=== PATIENT | female | born 1965 | race African-American/Black ===

== ENCOUNTER 2017-08-14 23:01 | Inpatient (IN) | payer OTHER ==
[~2017-08-14] VITALS: Ht 172.7 cm; Wt 138.3 kg
[~2017-08-14 23:01] MED LIST: ASPI-612 PO; AZIT250T6 PO; BISA10SU15 RC; CETI10TA22 PO; CIPR500T94 PO; CRAN475C2 PO; FLUT16SP2 NS; GARL1TAB2 PO; GUAI600T47 PO; HYDR12.53 PO; HYDR12.58 PO; IBUP800T19 PO; LOSA25TA4 PO; LUTE10TA2 PO; METO25TA4 PO; MONT10TA9 PO; MULT-658 PO; [UNRECOGNIZED DRUG - OTHER]; [UNRECOGNIZED DRUG - OTHER] PO
--- NOTE | 2017-08-14 23:06 | ED.ADGEN ---
Past History Past Medical History: CAD, Diabetes, Seizure Past Surgical History: No Surgical History Alcohol Use: None Drug Use: None Adult General Chief Complaint Chief Complaint " She had a seizure this morning .. about 800 am.. but she never came around.. but that is not unusual for her...".. " When she has a seizure... the fei lays around all day..." . HPI HPI Patient is a 51 year old female who presents with above hx and complaints. of tonic clonic seizure at approx. 0800 hrs. Pt. has hx of known seizure disorder, HTN, CADz, and diabetes. Pt. reportedly has not been compliant with meds. Pt. refuses to come to the ED when she has a seizure per family and . Pt. had no seizure meds in her purse- this is location pt keeps her meds. Pt. reportedly had no trauma, fevers, illicit drug use. Pt. on arrival open eyes to voice and follow instruction. Pt. GSC-14. Review of Systems Review of Systems Constitutional: Denies fever or chills [] Eyes: Denies change in visual acuity, redness, or eye pain [] HENT: Denies nasal congestion or sore throat [] Respiratory: Denies cough or shortness of breath [] Cardiovascular: No additional information not addressed in HPI [] GI: Denies abdominal pain, nausea, vomiting, bloody stools or diarrhea [] : Denies dysuria or hematuria [] Musculoskeletal: Denies back pain or joint pain [] Integument: Denies rash or skin lesions [] Neurologic: Denies headache, focal weakness or sensory changes [] Hx of seizure Endocrine: Denies polyuria or polydipsia [] All other systems were reviewed and found to be within normal limits, except as documented in this note. Family History Family History Non-contributory Current Medications Current Medications Current Medications Medications (Trade) Dose Ordered Sig/Nohelia Start Time Stop Time Status Last Admin Dose Admin Ceftriaxone Sodium 1 gm/ Sodium Chloride 50 ml @ 100 mls/hr 1X ONCE 08/15/17 01:30 08/15/17 01:59 UNV Levetiracetam (Keppra) 500 mg STK-MED ONCE 08/15/17 00:17 08/15/17 00:18 DC Levetiracetam 500 mg/Sodium Chloride 100 ml @ 400 mls/hr Q12HR 08/15/17 00:00 08/15/17 08:59 08/15/17 00:00 400 MLS/HR Lorazepam (Ativan) 2 mg 1X PRN PRN 08/15/17 01:30 Sodium Chloride 100 ml @ As Directed STK-MED ONCE 08/15/17 00:17 08/15/17 00:18 DC Allergies Allergies Allergies Coded Allergies Type Severity Reaction Last Updated Verified No Known Drug Allergies 03/13/14 No Physical Exam Physical Exam Constitutional: no acute distress, sleepy in appearance. [] HENT: Normocephalic, bite fitzgerald to lips, , bilateral external ears normal, oropharynx moist, no oral exudates, nose normal. [] Eyes: PERRLA, EOMI, conjunctiva normal, no discharge. [] Neck: Normal range of motion, no tenderness, supple, no stridor. [] Cardiovascular:Tachycardia heart rate regular rhythm, no murmur []PMI to Lt. Lungs & Thorax: Bilateral breath sounds few crackles/ rhonchi Rt. upper on auscultation [] Abdomen: Bowel sounds normal, soft, no tenderness, no masses, no pulsatile masses. [] Obese. Skin: Warm, dry, no erythema, no rash. [] Back: No tenderness, no CVA tenderness. [] Extremities: No tenderness, no cyanosis, no clubbing, ROM intact, trace edema. [ ] Neurologic: Alert and oriented X 3, no gross motor , sensory function deficits, no gross focal deficits noted. [] Psychologic: Affect flat, judgement undetermined, mood depressed Current Patient Data Vital Signs Vital Signs Date Time Temp Pulse Resp B/P (MAP) Pulse Ox O2 Delivery O2 Flow Rate FiO2 08/15/17 01:45 112 17 172/101 (124) 100 Nasal Cannula 2.0 08/14/17 23:03 99.6 Lab Results Laboratory Tests Test 08/15/17 00:08 08/15/17 00:10 08/15/17 00:36 White Blood Count 12.1 x10^3/uL (4.0-11.0) H Red Blood Count 5.14 x10^6/uL (3.50-5.40) Hemoglobin 13.9 g/dL (12.0-15.5) Hematocrit 42.3 % (36.0-47.0) Mean Corpuscular Volume 82 fL (79-100) Mean Corpuscular Hemoglobin 27 pg (25-35) Mean Corpuscular Hemoglobin Concent 33 g/dL (31-37) Red Cell Distribution Width 15.1 % (11.5-14.5) H Platelet Count 203 x10^3/uL (140-400) Neutrophils (%) (Auto) 90 % (31-73) H Lymphocytes (%) (Auto) 3 % (24-48) L Monocytes (%) (Auto) 6 % (0-9) Eosinophils (%) (Auto) 0 % (0-3) Basophils (%) (Auto) 1 % (0-3) Neutrophils # (Auto) 10.9 x10^3uL (1.8-7.7) H Lymphocytes # (Auto) 0.4 x10^3/uL (1.0-4.8) L Monocytes # (Auto) 0.7 x10^3/uL (0.0-1.1) Eosinophils # (Auto) 0.0 x10^3/uL (0.0-0.7) Basophils # (Auto) 0.1 x10^3/uL (0.0-0.2) Prothrombin Time 10.6 SEC (9.4-11.4) Prothrombin Time INR 1.0 (0.9-1.1) PTT 23 SEC (23-33) Sodium Level 140 mmol/L (136-145) Potassium Level 3.5 mmol/L (3.5-5.1) Chloride Level 102 mmol/L (98-107) Carbon Dioxide Level 23 mmol/L (21-32) Anion Gap 15 (6-14) H Blood Urea Nitrogen 11 mg/dL (7-20) Creatinine 1.3 mg/dL (0.6-1.0) H Estimated GFR (Cockcroft-Gault) 52.3 Glucose Level 134 mg/dL (70-99) H Lactic Acid Level 1.4 mmol/L (0.4-2.0) Calcium Level 9.0 mg/dL (8.5-10.1) Magnesium Level 2.7 mg/dL (1.8-2.4) H Ammonia < 10 mcmol/L (11-34) L Creatine Kinase 522 U/L (26-192) H Creatine Kinase MB (Mass) 8.8 ng/mL (0.0-3.6) H Creatine Kinase MB Relative Index 1.7 % (0-4) Troponin I Quantitative 0.054 ng/mL (0-0.055) KY-Kcx-T-Type Natriuretic Peptide 119 pg/mL (0-124) Phenytoin (Dilantin) Level < 0.5 mcg/mL (10.0-20.0) L Phenytoin Last Dose Date Unknown Phenytoin Last Dose Time Unknown Glucose (Fingerstick) 132 mg/dL (70-99) H Urine Collection Type Unknown Urine Color Yellow Urine Clarity Clear Urine pH 5.5 Urine Specific [place] 1.015 Urine Protein Trace (NEG-TRACE) Urine Glucose (UA) Neg mg/dL (NEG) Urine Ketones (Stick) 80 mg/dL (NEG) Urine Blood Mod (NEG) Urine Nitrite Neg (NEG) Urine Bilirubin Neg (NEG) Urine Urobilinogen Dipstick 0.2 mg/dL (0.2 mg/dL) Urine Leukocyte Esterase Neg (NEG) Urine RBC Occ /HPF (0-2) Urine WBC Occ /HPF (0-4) Urine Squamous Epithelial Cells Occ /LPF Urine Bacteria 0 /HPF (0-FEW) Urine Opiates Screen Neg (NEG) Urine Methadone Screen Neg (NEG) Urine Barbiturates Neg (NEG) Urine Phencyclidine Screen Neg (NEG) Urine Amphetamine/Methamphetamine Neg (NEG) Urine Benzodiazepines Screen Neg (NEG) Urine Cocaine Screen Neg (NEG) Urine Cannabinoids Screen Neg (NEG) Urine Ethyl Alcohol Neg (NEG) EKG EKG My interpretation of EKG is a sinus tachycardia with some non-specific Anterolateral changes. No findings of acute STEMI with contra lateral change.s [] Radiology/Procedures Radiology/Procedures My interpretation of chest x-ray shows borderline cardiomegaly. Atelectasis. No large acute cardiopulmonary changes.[] My interpretation CT head shows no shift, mass, edema, bleed, or fracture. My interpretation of cervical shows no obvious fracture dislocation. There is degenerative joint changes. Course & Med Decision Making Course & Med Decision Making Pertinent Labs and Imaging studies reviewed. (See chart for details), Admit to Dr. Palencia. Does presentation, testing and treatment plan with Dr. Palencia. [] Final Impression Final Impression 1. Seizure 2. Mental status change[] 3. Increase mag level 4. CK 522 5. Mild elevation creat. 1.3 6. Mild leukocytosis 12,1 Dragon Disclaimer Dragon Disclaimer This electronic medical record was generated, in whole or in part, using a voice recognition dictation system. JENNIFER BRITO MD August 14, 2017 23:06
[2017-08-14] MEDS ORDERED: LORazepam 2 MG/ML VIAL ONE (23:33)
[2017-08-14] MEDS ORDERED: LORazepam 1 MG TABLET PO ONE (23:45)
[2017-08-15] VITALS (20 sets, daily range): BP systolic 144–199; BP diastolic 66–94
[2017-08-15] MEDS ORDERED: LORazepam 2 MG/ML VIAL IV ONE
--- NOTE | 2017-08-15 00:09 | RAD ---
RS Compliance Statement: One or more of the following individualized dose reduction techniques were utilized for this examination: 1. Automated exposure control 2. Adjustment of the mA and/or kV according to patient size 3. Use of iterative reconstruction technique CT HEAD AND CERVICAL SPINE WITHOUT CONTRAST History: 900259.001 Patient found unresponsive at 8am today, possible seizure activity with fall, patient complains of headache and neck pain now. Hx: Seizures Comparison: CT abdomen and maxillofacial without contrast, March 13, 2014. Procedure: Axial images are obtained of the head from the skull base through the vertex without IV contrast. Noncontrast helical CT of the cervical spine was performed. Axial, sagittal, and coronal reconstructions were obtained. Findings: The ventricles and sulci are normal for the patient's age. No mass-effect, midline shift, hemorrhage or obvious acute infarction is identified. Basilar cisterns are patent. Bone windows demonstrate no significant calvarial abnormality. Mucosal thickening right maxillary and anterior right ethmoid sinuses. No air-fluid level.. Mastoid air cells are well aerated. There is no evidence of acute fracture or acute malalignment of the cervical spine. Straightening and mild reversal of normal cervical lordosis may be positional or due to muscle spasm. There is no disc space narrowing. There is mild degenerative endplate spurring at C4/C5 and C5/C6. Facet joints are intact. Increased noise to signal ratio in the lower cervical spine is probably due to patient body habitus. There is also motion artifact. Visualized soft tissues of the neck demonstrate no significant abnormalities. The visualized lung apices are clear. IMPRESSION: 1. No acute intracranial abnormality. 2. Lower cervical spine evaluation is limited due to motion artifact. No acute fracture of the cervical spine. Electronically signed by: Dieudonne Guzman MD (08/15/2017 12:05 AM) [facility]
[2017-08-15] MEDS ORDERED: IV NORMAL SALINE 100ML 100 ML ONE ×2 (00:11→00:17)
[2017-08-15] MEDS ORDERED: levETIRAcetam 500 MG/5 ML VIAL IV ONE ×2 (00:11→00:17)
[2017-08-15 00:28] LABS: BASO # 0.1 x10^3/uL (0.0-0.2); BASO % 1 % (0-3); EOS % 0 % (0-3); HEMATOCRIT 42.3 % (36.0-47.0); HEMOGLOBIN 13.9 g/dL (12.0-15.5); LYMPH # 0.4 x10^3/uL (1.0-4.8); LYMPH % 3 % (24-48); MEAN CORPUSCULAR HEMOGLOBIN 27 pg (25-35); MEAN CORPUSCULAR HGB CONC 33 g/dL (31-37); MEAN CORPUSCULAR VOLUME 82 fL (79-100); MONO # 0.7 x10^3/uL (0.0-1.1); MONO % 6 % (0-9); NEUT # 10.9 x10^3uL (1.8-7.7); NEUT % 90 % (31-73); PLATELET COUNT 203 x10^3/uL (140-400); RED BLOOD COUNT 5.14 x10^6/uL (3.50-5.40); RED CELL DISTRIBUTION WIDTH 15.1 % (11.5-14.5); WHITE BLOOD COUNT 12.1 x10^3/uL (4.0-11.0)
[2017-08-15 00:56] LABS: ANION GAP 15 (6-14); BLOOD UREA NITROGEN 11 mg/dL (7-20); CARBON DIOXIDE 23 mmol/L (21-32); CHLORIDE 102 mmol/L (98-107); CREATININE 1.3 mg/dL (0.6-1.0); GFR 52.3; GLUCOSE 134 mg/dL (70-99); MAGNESIUM 2.7 mg/dL (1.8-2.4); POTASSIUM 3.5 mmol/L (3.5-5.1); SODIUM 140 mmol/L (136-145)
[2017-08-15 01:00] LABS: PHENY < 0.5 mcg/mL (10.0-20.0)
[2017-08-15 01:15] LABS: AMPHETAMINE/METHAMPHETAMINE NEG (NEG); BARBITURATES NEG (NEG); BENZODIAZEPINES NEG (NEG); CANNABINOIDS NEG (NEG); COCAINE NEG (NEG); METHADONE NEG (NEG); OPIATES NEG (NEG); PHENCYCLIDINE NEG (NEG)
[2017-08-15] MEDS ORDERED: LORazepam 2 MG/ML VIAL IV PRN (01:30)
--- NOTE | 2017-08-15 01:45 | EKG ---
[address] [address] Test Date: 2017-08-15 Test Time: 00:22:13 Pat Name: NIA WHITLEY Department: Room: Gender: F Health Technician Hearing: [place]LA[place] : 1965 Requested By: JENNIFER BRITO Order Number: [id number] Reading MD: Measurements Intervals [place] Rate: 109 P: 67 AR: 90 QRS: 10 QRSD: 80 T: 8 QT: 328 QTc: 443 Interpretive Statements SINUS TACHYCARDIA QRS(T) CONTOUR ABNORMALITY CONSIDER ANTEROLATERAL MYOCARDIAL DAMAGE CONSIDER INFERIOR MYOCARDIAL DAMAGE POSSIBLY ABNORMAL ECG RI6.01 Compared to ECG 05/28/2015 20:10:42 T-wave abnormality no longer present Possible ischemia no longer present
[2017-08-15 01:59] LABS: BILIRUBIN,URINE NEG (NEG); CLARITY,URINE CLEAR; COLOR,URINE YELLOW; GLUCOSE,URINE NEG (NEG)
[2017-08-15 02:00] LABS: BACTERIA,URINE 0 /HPF (0-FEW); NITRITE,URINE NEG (NEG); RBC,URINE OCC /HPF (0-2); SQUAMOUS EPITHELIAL CELL,UR OCC /LPF; UROBILINOGEN,URINE 0.2 mg/dL (0.2 mg/dL); WBC,URINE OCC /HPF (0-4)
[2017-08-15] MEDS ORDERED: cefTRIAXone IV Push 1 GM VIAL. IVP ONE (02:00)
[2017-08-15] MEDS ORDERED: CELE100C PO (02:36)
[2017-08-15] MEDS ORDERED: MECL25TA3 PO (02:36)
[2017-08-15] MEDS: IV NORMAL SALINE 1,000ML 1,000 ML IV SCH ×3 (02:45→17:00)
[2017-08-15] MEDS ORDERED: IBUP800T19 PO (03:33)
[2017-08-15] MEDS ORDERED: FLUT9.9S NS (03:34)
[2017-08-15] MEDS ORDERED: DIPH25CA58 PO (03:34)
--- NOTE | 2017-08-15 08:00 | RAD ---
EXAM: CHEST 1 VIEW History: Unresponsive, seizure COMPARISON: None available. TECHNIQUE: Single portable radiograph of the chest FINDINGS: The cardiac silhouette is unremarkable. The lungs are clear bilaterally. The costophrenic sulci are clear and well demarcated. IMPRESSION: No radiographic evidence of an acute cardiopulmonary process. Electronically signed by: Richard Dupont MD (08/15/2017 7:57 AM) [facility]
[2017-08-15] MEDS: ASPIRIN ENTERIC COATED 81 MG TABLET.DR. PO SCH (08:01)
[2017-08-15] MEDS: METOPROLOL TART IMMED RELEASE 25 MG TABLET PO SCH ×2 (08:01→21:11)
[2017-08-15] MEDS ORDERED: BISACODYL 10 MG SUPP.RECT PR PRN (09:45)
[2017-08-15] MEDS ORDERED: IBUPROFEN 800 MG TABLET. PO PRN (10:00)
[2017-08-15] MEDS: MECLIZINE 12.5 MG TABLET. PO SCH ×3 (10:00→21:11)
[2017-08-15] MEDS: CELECOXIB 100 MG CAPSULE PO SCH ×2 (10:00→21:10)
--- NOTE | 2017-08-15 11:53 | EKG ---
[address] [address] Test Date: 2017-08-15 Test Time: 11:49:51 Pat Name: NIA WHITLEY Department: Room: [facility] 1 Gender: F Cabinet Maker: : 1965 Requested By: FANTA BENAVIDEZ Order Number: [id number] Reading MD: Measurements Intervals [place] Rate: 102 P: 76 NC: 94 QRS: 22 QRSD: 78 T: 13 QT: 326 QTc: 429 Interpretive Statements SINUS TACHYCARDIA NO SPECIFIC ECG ABNORMALITIES RI6.01 Compared to ECG 05/28/2015 20:10:42 T-wave abnormality no longer present Possible ischemia no longer present
[2017-08-15] MEDS: hydrALAZINE 20 MG/ML VIAL. IV SCH ×2 (12:22→21:11)
[2017-08-15] MEDS: cefTRIAXone IV Push 1 GM VIAL. IVP SCH (12:35)
[2017-08-15] MEDS: HEPARIN PF for SUB-Q USE 5,000 UNIT/0.5 ML VIAL. SQ SCH ×2 (15:48→22:38)
[2017-08-15] MEDS: traMADol 50 MG TABLET PO PRN (16:12)
--- NOTE | 2017-08-15 20:40 | HP ---
ADMIT DATE: 08/15/2017 HISTORY OF PRESENT ILLNESS: A 51-year-old -[place]ish female with history of seizures, came in early this morning through the Emergency Room, apparently had a tonic-clonic seizure approximately at 0800. She has a known history of seizure disorders. The patient was admitted and placed on IV Keppra. Dr. Harp was consulted and the patient was admitted for further evaluation as she is quite postictal at this time. PAST MEDICAL HISTORY: Grand mal seizures, headaches, coronary artery disease, hypertension, asthma, hiatal hernia, abdominal surgery, obesity, carpal tunnel surgery, bilateral shoulder surgery, nerve impingement, joint replacement, bilateral shoulders in 2013. MEDICATIONS: Her normal medications she takes at home including Benadryl, metoprolol 25 mg b.i.d., aspirin , Celebrex 100 mg b.i.d., ibuprofen 800 p.r.n., Flonase nasal spray and laxatives, meclizine 25 q.8h. ALLERGIES: No known drug allergies. SOCIAL HISTORY: No history of smoking, alcohol, or drug use. REVIEW OF SYSTEMS: Otherwise on review of systems, the patient is very somnolent and just unable to really answer any real question except moaning. She is postictal. PHYSICAL EXAMINATION: GENERAL: However, this is a pleasant -[place]ish female in no apparent distress at the present time, is very somnolent. VITAL SIGNS: Her blood pressure is 157/105 and has been as high as 199, has come down; respirations of 18; temperature of 100.5, pulse of 112. HEENT: The patient's head was atraumatic, normocephalic. Eyes: PERRLA without jaundice. Mouth and throat were normal. NECK: Supple, no JVD or thyromegaly. LUNGS: Clear to auscultation. CARDIOVASCULAR: Regular sinus rhythm, S1, S2, without murmur, rub, thrill, or extra heart sound. ABDOMEN: Soft, nontender, no rebounding or guarding. Positive bowel sounds, no hepatosplenomegaly was noted. EXTREMITIES: No clubbing, cyanosis, or edema. NEUROLOGIC: The patient was somnolent. She was barely arousable, is noted very postictal. IMPRESSION AND PLAN: Tonic-clonic seizure. She does have an elevated white count; however, even though chest x-ray and UA are unremarkable. She fits criteria. Also, hypertensive urgency, placed on IV hydralazine, may put her on some IV antibiotic therapy just in case since she does have some indication for infection including the elevated temperature of 100.5, pulse of 112, elevated blood pressure, and respiratory rate of 22, pulse ox 92%. We will start her on IV antibiotic therapy and make further evaluation on her, control her seizure activity with IV Keppra per Dr. Harp. FANTA BENAVIDEZ MD DR: SONAM/pedro JOB#: [id number] / [id number]
[2017-08-16] VITALS (20 sets, daily range): BP systolic 149–226; BP diastolic 69–100
[2017-08-16] MEDS: IV NORMAL SALINE 1,000ML 1,000 ML IV SCH ×2 (05:25→06:25)
[2017-08-16 06:42] LABS: BASO % 0 % (0-3); EOS % 0 % (0-3); HEMATOCRIT 37.7 % (36.0-47.0); HEMOGLOBIN 12.2 g/dL (12.0-15.5); LYMPH # 0.9 x10^3/uL (1.0-4.8); LYMPH % 13 % (24-48); MEAN CORPUSCULAR HEMOGLOBIN 27 pg (25-35); MEAN CORPUSCULAR HGB CONC 32 g/dL (31-37); MEAN CORPUSCULAR VOLUME 84 fL (79-100); MONO # 0.7 x10^3/uL (0.0-1.1); MONO % 11 % (0-9); NEUT # 5.2 x10^3uL (1.8-7.7); NEUT % 76 % (31-73); PLATELET COUNT 193 x10^3/uL (140-400); RED BLOOD COUNT 4.51 x10^6/uL (3.50-5.40); RED CELL DISTRIBUTION WIDTH 15.6 % (11.5-14.5); WHITE BLOOD COUNT 6.9 x10^3/uL (4.0-11.0)
[2017-08-16 06:50] LABS: CALCIUM 8.1 mg/dL (8.5-10.1); GFR 70.7; POTASSIUM 3.6 mmol/L (3.5-5.1)
[2017-08-16] MEDS: HEPARIN PF for SUB-Q USE 5,000 UNIT/0.5 ML VIAL. SQ SCH ×3 (06:53→20:58)
[2017-08-16] MEDS: FLUTICASONE 50MCG/NASAL SPRAY 16GM BOTTLE. NS PRN (08:10)
[2017-08-16] MEDS: traMADol 50 MG TABLET PO PRN ×2 (08:10→09:32)
[2017-08-16] MEDS: MECLIZINE 12.5 MG TABLET. PO SCH ×3 (08:10→20:48)
[2017-08-16] MEDS: CELECOXIB 100 MG CAPSULE PO SCH ×2 (08:10→20:48)
[2017-08-16] MEDS: ASPIRIN ENTERIC COATED 81 MG TABLET.DR. PO SCH (08:10)
[2017-08-16] MEDS: METOPROLOL TART IMMED RELEASE 25 MG TABLET PO SCH ×2 (08:11→20:50)
[2017-08-16] MEDS: hydrALAZINE 20 MG/ML VIAL. IV SCH ×3 (08:11→19:53)
--- NOTE | 2017-08-16 08:14 | RAD ---
Facial bones, 3 views, 08/15/2017: HISTORY: Injury No fracture is identified. There is hazy partial opacification of the right maxillary sinus. The recent CT had study demonstrated mild mucosal thickening in the partially visualized right maxillary and ethmoid sinuses. The other paranasal sinuses are otherwise clear. IMPRESSION: 1. No acute bony abnormality is detected. 2. Partial opacification of the right maxillary sinus is likely on an inflammatory basis. Electronically signed by: Gordon Day MD (08/16/2017 8:10 AM) [facility]
--- NOTE | 2017-08-16 09:11 | CONS ---
DATE OF CONSULTATION: 08/15/2017 REFERRING PHYSICIAN: Dr. Palencia REASON FOR CONSULTATION: Probably breakthrough seizure. HISTORY OF PRESENT ILLNESS: This is a 51-year-old -[place]og[place] female who was admitted through Emergency Room after she presented with chief complaint of "seizure activity". According to her , the patient has had a recurrent seizure described as generalized tonic-clonic seizure followed by postictal confusions, tongue biting and urinary incontinence with foaming at mouth. The patient did not recall the seizure. She would have a seizure during sleep or sometimes when she was awake. The seizure activity preceded with headaches. The patient would have 3-4 seizures a year. The last time I saw her in this institution in a neuro consult was on 05/26/2015 when she presented with the same episodes. Her EEG was negative for seizure activities; however, the patient did not follow with Neurology. The patient has not been followed by Neurology as she was instructed and is not sure whether the patient has been taking any anticonvulsant. Today, the said she had a similar generalized tonic-clonic seizure, was a prolonged postictal period. The is not sure whether she was taking anticonvulsant in the last 2 years. The patient appeared to be tired and drowsy and not able to communicate this morning. Initial nonenhanced head CT scan revealed no evidence of acute intracranial process. There is no history of recent illnesses or trauma. PAST MEDICAL HISTORY: Significant for tachycardia. The patient was seen by [facility] body [facility] and catheterization was performed in 2015, but the result is not available. Her stated the catheter was negative. Other medical problems include hypertension, dizziness, diabetes mellitus and a history of seizure disorder, asthma, hiatal hernia, obesity and abdominal surgery for hernia repair PAST SURGICAL HISTORY: Status post bilateral carpal tunnel release, bilateral shoulder surgery in 2015 and 2013. FAMILY HISTORY: Unknown. She grew up in a foster home. SOCIAL HISTORY: The patient is . She denies smoking, alcohol drinking, or illicit drug use. CURRENT MEDICATIONS: Metoprolol 25 mg b.i.d., Keppra 500 mg IV b.i.d., aspirin 162 mg daily, lorazepam 2 mg p.r.n. Other home medications include Celebrex, ibuprofen, and meclizine. ALLERGIES: No known drug allergies. REVIEW OF SYSTEMS: A 10-point review of system was performed and consistent with history of present illness. PHYSICAL EXAMINATION: GENERAL: Obese white female, not in acute distress. She weighs 302 pounds. VITAL SIGNS: Blood pressure 145/116, respiratory rate 18, pulse is 111, temperature 99, oxygen saturation is 95% on room air. HEENT: Normocephalic, atraumatic, otherwise unremarkable. NECK: Supple. Negative for carotid bruit, lymphadenopathy or thyromegaly. LUNGS: Clear to A and P. CARDIOVASCULAR: Regular rate and rhythm, normal S1, S2. There is no S3, S4 or murmur. ABDOMEN: Soft. Bowel sounds positive. EXTREMITIES: Negative for cyanosis, clubbing, pitting edema. NEUROLOGIC: 1. Mental status: The patient is drowsy, but awakable. However, she is not communicating or responds to commands because she is very tired and drowsy. Further evaluation of her mental status is limited at this time. 2. Cranial nerves: No focal or facial, motor or sensory deficit. Hearing appeared to be intact. The pupils are equal and reactive to light and accommodation. The extraocular movements are intact. There is no nystagmus. Gag reflex is present. The palate is elevated symmetrically. Sternocleidomastoid muscles are powerful bilaterally. The patient shrugs her shoulders symmetrically, protrudes her tongue in the midline without fasciculation or atrophy. 3. Motor: No focal muscle bulk was seen. The tone is normal. The strength is 4/5 throughout. The patient is drowsy and not able to cooperate with the manual muscle exam. 4. Sensory examination revealed normal pinprick and light touch senses throughout. Deep tendon reflexes were symmetric and hypoactive with absent Achilles responses. Gait not tested. LABORATORY DATA: CBC revealed white blood cells of 12.1 thousand, hemoglobin 13.9, hematocrit 42.3, platelet count 203,000. Chemistry revealed sodium of 140, potassium 3.5, chloride 102, CO2 of 23, BUN 11, creatinine 1.3, glucose 134. Lactic acid is 1.4. Calcium is 9. Magnesium is high at 2.7. Creatinine kinase is high at 522. Troponin level is 0.054. CK -- MB is high at 8.8. Ammonia level less than 10. Urinalysis is negative. Urine drug screen is negative. IMPRESSION: 1. Seizure-like activity described as generalized tonic-clonic seizure with history of seizure, but has not been compliant on medications. 2. Multiple medical problems include hypertension, vertigo, arthritis, diabetes mellitus and history of coronary artery disease with negative cardiac catheterization. 3. Elevated creatinine kinase with a creatinine kinase MB. RECOMMENDATIONS: 1. The patient has been started on Keppra 500 mg twice daily intravenously. 2. Cardiac consult. 3. We will repeat EEG and can be done outpatient. 4. Hydration. M Yana LEVI MD DR: IVANA/pedro JOB#: [id number] / [id number]
[2017-08-16] MEDS: levETIRAcetam 500 MG TABLET PO SCH ×2 (09:31→20:48)
[2017-08-16] MEDS ORDERED: KETOROLAC 30 MG/ML VIAL. IV ONE (11:15)
[2017-08-16] MEDS: cefTRIAXone IV Push 1 GM VIAL. IVP SCH (11:45)
[2017-08-16] MEDS ORDERED: ONDANSETRON ODT 4 MG TAB.RAPDIS ONE (17:29)
[2017-08-16] MEDS ORDERED: ONDANSETRON ODT 4 MG TAB.RAPDIS PO PRN (17:45)
[2017-08-16] MEDS ORDERED: amLODIPine BESYLATE 5 MG TABLET PO SCH (18:45)
[2017-08-16] MEDS ORDERED: KETOROLAC 30 MG/ML VIAL. IV PRN (18:45)
[2017-08-16] MEDS ORDERED: amLODIPine BESYLATE 10 MG TABLET PO ONE (19:00)
--- NOTE | 2017-08-16 19:00 | RAD ---
CT HEAD WO CONTRAST dated 08/16/2017 6:08 PM Indication: Seizure Seizures, dizziness for one week, fall and hit face on left forehead. Multiple CTs in recent days. Comparison: 08/14/2017 Technique: Contiguous axial imaging the head was performed from skull base to vertex. No contrast administered. One or more of the following individualized dose reduction techniques were utilized for this examination: 1. Automated exposure control 2. Adjustment of the mA and/or kV according to patient size 3. Use of iterative reconstruction technique Findings: Ventricles and sulci are within normal limits for age. No midline shift or mass effect. Brain parenchyma is of normal attenuation. No hemorrhage or extra-axial collection. Posterior fossa and brainstem unremarkable. Moderate mucosal thickening of the right ethmoid air cells and right maxillary sinus. The visualized paranasal sinuses and mastoid air cells are otherwise clear. No apparent calvarial abnormality. IMPRESSION: 1. No evidence of acute intracranial hemorrhage or mass. 2. Paranasal sinus disease as described above. Electronically signed by: Esdras Palomino MD (08/16/2017 6:57 PM) [facility]
[2017-08-17] VITALS (9 sets, daily range): BP systolic 148–192; BP diastolic 75–100
--- NOTE | 2017-08-17 03:04 | PN ---
DATE: 08/16/2017 SUBJECTIVE: A 51-year-old female in with grand mal seizure. The patient apparently fell, hit her face. She probably does have a sinus infection according to her x-rays of her face, but no broken bones. She is on IV antibiotic therapy. She is more awake today than she was yesterday. The patient says she is feeling better. OBJECTIVE: VITAL SIGNS: Blood pressure up to 183/95, respiratory rate 20, pulse 116. She is afebrile, 99 degrees. GENERAL: The patient's face still hurts over the maxillary sinuses. Continue on the IV Rocephin and will continue with that as well. Otherwise, alert and oriented x 3. Speech fluent, spontaneous, appropriate. Cranial nerves II-XII are grossly intact. LUNGS: Diminished, but clear. CARDIOVASCULAR: Regular sinus rhythm, S1, S2, without murmur, rub, thrill, or extra heart sound. ABDOMEN: Soft, nontender, no rebound or guarding. Positive bowel sounds. No hepatosplenomegaly. NEUROLOGIC: The patient is alert and oriented x 3. Speech fluent, spontaneous, appropriate. Cranial nerves II-XII grossly intact. IMPRESSION: Grand mal seizure, sinusitis, facial pain, following contusion to the face, obesity, elevated white count. PLAN: We will increase her hydralazine, continue on her IV Rocephin, discontinue the fluids. Have PT, OT evaluate her for ____. FANTA BENAVIDEZ MD DR: SONAM/pedro JOB#: [id number] / [id number]
[2017-08-17] MEDS: traMADol 50 MG TABLET PO PRN (03:31)
[2017-08-17] MEDS: HEPARIN PF for SUB-Q USE 5,000 UNIT/0.5 ML VIAL. SQ SCH (06:03)
--- NOTE | 2017-08-17 07:11 | PN ---
DATE: 08/16/2017 REQUESTING PHYSICIAN: Dr. Chetan Palencia. SUBJECTIVE: The patient denies any new medical or neurological complaints. She continues to complaint of dizziness and a mild frontal headache. The patient has not had any occult seizure since admission. OBJECTIVE: GENERAL: Obese -[place] female, in no acute distress. VITAL SIGNS: Blood pressure 183/95, respiratory rate 20, pulse is 116, and temperature is 99, oxygen saturation is 97% on room air. HEENT: Normocephalic, atraumatic. Head was unremarkable. NECK: Supple. Negative for carotid bruit, lymphadenopathy, or thyromegaly. LUNGS: Clear to A and P. CARDIOVASCULAR: Regular rhythm, normal S1, S2. ABDOMEN: Soft. Bowel sounds positive. EXTREMITIES: Negative for cyanosis, clubbing, or pitting edema. NEUROLOGIC: Mental Status: The patient is alert and oriented x 3. Speech is fluent. There is no language dysfunctions. Memory, judgment, and abstract thinking are normal. The patient denies hallucination or delusion. Cranial nerves are intact. Motor: No focal muscle bulk was seen. The tone is normal. The strength is 4/5 throughout. Sensory: Reveal normal pinprick, light touch, vibratory and position senses. Deep tendon reflexes were symmetric and hypoactive with absent Achilles responses. Gait: Not tested. LABORATORY DATA: CBC reveal white blood cells of 6.9 thousand, hemoglobin 12.2, hematocrit 37.7, platelet count is 193,000. Chemistry: Sodium of 144, potassium 3.6, chloride 110, CO2 of 24, BUN 12, creatinine 1, glucose is 129, calcium 8.1. Urine tox screen is negative. IMPRESSION: 1. Recurrent possible breakthrough seizure described as generalized tonic-clonic seizure. The patient has been on Keppra 500 mg b.i.d. and had no recurrent seizures since admission. 2. Elevated white blood cells, rule out systemic infections, the patient on antibiotics since admission with normal white blood cell count. 3. Obesity and history of coronary artery disease. 4. Dizziness, unsteadiness. RECOMMENDATIONS: 1. We will arrange for EEG to be done on an outpatient. 2. Continue with current management for seizure. 3. Continue with current management initiated by Dr. Palencia. M F. HABIB, MD DR: IVANA/pedro JOB#: [id number] / [id number]
[2017-08-17] MEDS: METOPROLOL TART IMMED RELEASE 25 MG TABLET PO SCH (08:22)
[2017-08-17] MEDS: MECLIZINE 12.5 MG TABLET. PO SCH (08:23)
[2017-08-17] MEDS: levETIRAcetam 500 MG TABLET PO SCH (08:23)
[2017-08-17] MEDS: ASPIRIN ENTERIC COATED 81 MG TABLET.DR. PO SCH (08:23)
[2017-08-17] MEDS: CELECOXIB 100 MG CAPSULE PO SCH (08:23)
[2017-08-17] MEDS: FLUTICASONE 50MCG/NASAL SPRAY 16GM BOTTLE. NS PRN (08:24)
[2017-08-17] MEDS ORDERED: LACTOBACILLUS RHAMNOSUS GG 1 CAPSULE. PO SCH (09:00)
[2017-08-17] MEDS ORDERED: amLODIPine BESYLATE 10 MG TABLET PO SCH (09:00)
[2017-08-17] MEDS ORDERED: CLIN300C8 PO (10:33)
[2017-08-17] MEDS ORDERED: HYDR-2869 PO (10:34)
[2017-08-17] MEDS ORDERED: LEVE500T56 PO (10:46)
--- NOTE | 2017-08-17 18:54 | DS ---
DATE OF DISCHARGE: 08/17/2017 HOSPITAL COURSE: The patient is a 51-year-old -[place] female who was found to have tonic-clonic seizure activity and was admitted to the hospital. She was in marked postictal state. The patient had possible breakthrough tonic-clonic seizure activity. She was seen with Dr. Harp, noted neurologist, placed on Keppra 500 b.i.d. and that controlled her seizures. She did have slight elevated white count and we placed on antibiotics, probably from a sinus infection. Her CT scan of the head and neck demonstrated the problem with the sinus problem and probably some muscle spasm in the cervical spine and facial bones were unremarkable as far as any partial opacification of the right maxillary sinus, may have been the reason for her elevated white count. Otherwise, the patient is resting fairly comfortably, making fairly good progress overall and she had no further seizure activity and she was discharged home for followup with Dr. Harp and follow up with PCP as well. She will be on a heart healthy diet, decreased activity, antibiotics for her situation with her sinus infection. She also had a CKD 4, and make further evaluation on her as indicated. FANTA BENAVIDEZ MD DR: SONAM/pedro JOB#: [id number] / [id number]
--- NOTE | 2017-08-17 23:07 | PN ---
DATE: SUBJECTIVE: The patient stated her headache has been improving in the last 24 hours. She rated headache at 3/10 in the frontal regions. She denies dizziness this morning, chest pain, shortness of breath or palpitations. OBJECTIVE: GENERAL: Obese -[place] female, not in acute distress. VITAL SIGNS: Blood pressure 153/87, respiratory rate 18, pulse is 98, temperature is afebrile, and oxygen saturation 95% on room air. HEENT: Normocephalic and atraumatic, otherwise unremarkable. NECK: Supple. Negative for carotid bruit, lymphadenopathy or thyromegaly. LUNGS: Clear to A and P. CARDIOVASCULAR: Regular rate and rhythm, normal S1, S2. There is no S3, S4, or murmur. ABDOMEN: Soft. Bowel sounds positive. EXTREMITIES: Negative for cyanosis, clubbing, or pitting edema. NEUROLOGICAL EXAM: Mental Status: The patient is alert and oriented x 3. Speech is fluent. There is no language dysfunction. Memory, judgment, and abstract thinking are normal. The patient denies hallucination or delusion. Cranial nerves are intact. No focal motor muscle bulk was seen. The strength was 4/5 throughout. Sensory examination revealed normal pinprick, light touch, vibratory and position senses. Deep tendon reflexes were symmetric and hypoactive with absent Achilles responses. Gait not tested. ____ repeating head CT scan revealed no evidence of acute intracranial process, but it showed previous paranasal sinus disease. IMPRESSION: 1. Possible breakthrough seizure, described as generalized tonic-clonic seizure and she has not had recurrent seizures since admission. 2. Intermittent headaches and dizziness, probably due to underlying pansinusitis. 3. Obesity. RECOMMENDATIONS: 1. We will arrange for EEG to be done on an outpatient next Tuesday. 2. Continue with current management and care. M Yana LEVI MD DR: IVANA/pedro JOB#: [id number] / [id number]
== END 2017-08-17 10:45 | disposition home or self-care (01) | DRG 100 ==
LOC: ER 23:01 → ICU 08-15 01:57
PROVIDERS: ADMIT Family Medicine; ATTEND Family Medicine
DX: G40.409 Other generalized epilepsy and epileptic syndromes, not intractable, without status epilepticus (principal); R65.11 Systemic inflammatory response syndrome (SIRS) of non-infectious origin with acute organ dysfunction; E11.22 Type 2 diabetes mellitus with diabetic chronic kidney disease; N18.4 Chronic kidney disease, stage 4 (severe); D72.829 Elevated white blood cell count, unspecified; E11.9 Type 2 diabetes mellitus without complications; Z68.42 Body mass index [BMI] 45.0-49.9, adult; I25.10 Atherosclerotic heart disease of native coronary artery without angina pectoris; E66.9 Obesity, unspecified; W18.39XA Other fall on same level, initial encounter; G40.89 Other seizures; I16.0 Hypertensive urgency; S00.83XA Contusion of other part of head, initial encounter; J32.4 Chronic pansinusitis; J45.909 Unspecified asthma, uncomplicated; M19.90 Unspecified osteoarthritis, unspecified site; Z79.899 Other long term (current) drug therapy; Z91.14 Patient's other noncompliance with medication regimen; Y93.89 Activity, other specified; Y92.89 Other specified places as the place of occurrence of the external cause; Y99.8 Other external cause status; J32.9 Chronic sinusitis, unspecified; I12.9 Hypertensive chronic kidney disease with stage 1 through stage 4 chronic kidney disease, or unspecified chronic kidney disease
CPT/HCPCS: 36415; 51701; 70140; 70450; 71045; 72125; 80048; 80185; 80307; 81001; 82140; 82553; 82947; 83605; 83735; 83880; 84484; 85025; 85610; 85730; 87040; 87641; 93005; 96365; 96375; G0238; J0360; J0696; J1885; J1953; J2060; J8597; Q0162; 99285-25; G0479; J7030